=== PATIENT | male | born 1940 | race African-American/Black ===

== ENCOUNTER 2019-05-29 19:52 | Emergency (ER) | payer MEDICARE ==
[~2019-05-29] VITALS: Ht 188 cm; Wt 95.3 kg
[2019-05-29 19:55] VITALS: Ht 188 cm; Wt 95.3 kg
[2019-05-29 21:17] VITALS: BP 184/83
== END 2019-05-29 21:15 | disposition other institution (70) ==
LOC: ED 19:52
DX: S61.412A Laceration without foreign body of left hand, initial encounter (principal); X58.XXXA Exposure to other specified factors, initial encounter; Y93.89 Activity, other specified; Y92.89 Other specified places as the place of occurrence of the external cause; Y99.8 Other external cause status
CPT/HCPCS: 90715; J2001

== ENCOUNTER 2019-05-29 19:52 | Emergency (ER) | payer OTHER | END 2019-05-29 21:15 | disposition other institution (70) | LOC: ED 19:52 | DX: Z02.89 Encounter for other administrative examinations (principal) ==